=== PATIENT | male | born 1990 | race Two or more races ===

== ENCOUNTER 2023-11-16 11:05 | Inpatient (IN) | payer SELFPAY ==
[~2023-11-16] VITALS: Ht 177.8 cm; Wt 110.5 kg
[2023-11-16 11:41] LABS: BASOPHILS % (AUTO) 0.6 % (0.0-2.0); EOSINOPHILS % (AUTO) 2.3 % (1.0-6.0); HEMOGLOBIN 16.4 g/dL (13.5-17.5); LYMPHOCYTES # (AUTO) 1.8 K/uL (1.0-4.8); LYMPHOCYTES % (AUTO) 32.4 % (22.0-44.0); MEAN CORPUSCULAR HEMOGLOBIN 31.8 pg (26.0-34.0); MEAN CORPUSCULAR HGB CONC 36.3 G/dL (31.0-37.0); MEAN CORPUSCULAR VOLUME 88 fL (80-100); MONOCYTES # (AUTO) 0.4 K/uL (0.1-1.0); MONOCYTES % (AUTO) 7.8 % (2.0-9.0); NEUTROPHILS # (AUTO) 3.1 K/uL (1.8-7.7); NEUTROPHILS % (AUTO) 56.9 % (40.0-70.0); PLATELET COUNT (AUTO) 146 K/uL (150-450); RED BLOOD CELL COUNT(AUTO) 5.14 MIL/uL (4.50-5.90); RED CELL DISTRIBUTION WIDTH 13.6 % (11.5-14.5); WHITE BLOOD COUNT (AUTO) 5.4 K/uL (4.5-11.0)
[2023-11-16 12:05] LABS: ANION GAP 20 mmol/L (8-16); CALCIUM, TOTAL 7.4 mg/dL (8.8-10.5); CARBON DIOXIDE 17 mmol/L (22-29); CHLORIDE 94 mmol/L (98-107); GLUCOSE,RANDOM 379 mg/dL (70-110); POTASSIUM 3.8 mmol/L (3.5-5.1); SODIUM SERUM 131 mmol/L (136-145); UREA NITROGEN, BLOOD 13 mg/dL (7-18)
[2023-11-16 12:31] LABS: BILIRUBIN,TOTAL 1.1 mg/dL (0.1-1.0); CREATINE KINASE, TOTAL ONLY 99 U/L (39-308); PHOSPHORUS 2.8 mg/dL (2.5-4.9)
[2023-11-16 12:33] LABS: TROPONIN I-HIGH SENSITIVITY Less Than 4 ng/L (<76)
[2023-11-16 12:55] LABS: B-TYPE NATRIURETIC PEPTIDE 8 pg/mL (0-100)
[2023-11-16 13:04] LABS: ALANINE AMINOTRANSFERASE 86 U/L (12-78); ALBUMIN 3.6 g/dL (3.4-5.0); ALKALINE PHOSPHATASE 109 U/L (46-116); ASPARTATE AMINOTRANSFERASE 36 U/L (15-37); CREATININE 1.04 mg/dL (0.60-1.30); GLOMERULAR FILTR. RATE CALC > 60 mL/min (>60)
[2023-11-16] MEDS: MAGNESIUM SULFATE 1 GM in DEXTROSE 5%-WATER 50 ML IV ONE (13:45)
[2023-11-16] MEDS: SODIUM CHLORIDE 0.9% 1,000 ML IV ONE ×2 (13:45→16:52)
[2023-11-16 14:37] LABS: LACTIC ACID 0.7 mmol/L (0.4-2.0)
[2023-11-16] MEDS ORDERED: MAGNESIUM HYDROXIDE SUSPENSION 30 ML UDCUP PO PRN (15:30)
[2023-11-16] MEDS ORDERED: ZOLPIDEM TARTRATE 5 MG TABLET PO PRN (15:30)
[2023-11-16] MEDS ORDERED: MAGNESIUM SULFATE 4 GM/WATER 100 ML IV PRN (15:30)
[2023-11-16] MEDS ORDERED: DEXTROSE 50%-WATER 25 GM/50 ML SYRINGE IVP PRN (15:30)
[2023-11-16] MEDS ORDERED: MAGNESIUM SULFATE 2 GM/WATER 50 ML IV PRN (15:30)
[2023-11-16] MEDS ORDERED: BISACODYL 10 MG RECTAL RECTAL SUPPOSITORY PR PRN (15:30)
[2023-11-16] MEDS ORDERED: HYDROCODONE/ACETAMINOPHEN 5-325 MG TABLET PO PRN (15:30)
[2023-11-16] MEDS ORDERED: ACETAMINOPHEN 325 MG TABLET PO PRN (15:30)
[2023-11-16] MEDS ORDERED: ONDANSETRON HCL 4 MG/2 ML VIAL IVP PRN (15:30)
[2023-11-16] MEDS: HEPARIN SODIUM,PORCINE 5,000 UNITS/ML VIAL SQ SCH (16:53)
[2023-11-16] MEDS: MetFORMIN HCL 500 MG TABLET PO SCH (16:54)
[2023-11-16] MEDS: DOCUSATE SODIUM 100 MG CAPSULE PO SCH (20:28)
[2023-11-16] MEDS: INSULIN LISPRO 100 UNITS/ML SQ PRN (21:49)
[2023-11-16 22:03] VITALS: BP 123/74; PULSE 61; RESP 18; TEMP 98.4
[2023-11-16 23:06] LABS: GLUCOMETER DEV NAME(LOC) 5S.1B; GLUCOSE,POINT OF CARE 292 MG/DL (70-110)
[2023-11-16 23:48] VITALS: BP 121/74; PULSE 71; RESP 18; TEMP 98.2
[2023-11-17] VITALS (7 sets, daily range): BP systolic 118–131; BP diastolic 68–85; PULSE 62–94; RESP 16–20; TEMP 97.8–98.3
[2023-11-17 06:10] LABS: GLUCOMETER DEV NAME(LOC) 5S.1B; GLUCOSE,POINT OF CARE 230 MG/DL (70-110)
[2023-11-17] MEDS: MORPHINE SULFATE 2 MG/ML SYRINGE IVP PRN (08:43)
[2023-11-17] MEDS: HYDROCODONE/ACETAMINOPHEN 5-325 MG TABLET PO PRN (08:44)
[2023-11-17] MEDS: PANTOPRAZOLE SODIUM 40 MG DR TABLET PO SCH (08:44)
[2023-11-17] MEDS ORDERED: HYDROCODONE/ACETAMINOPHEN 5-325 MG TABLET PO PRN (11:30)
[2023-11-17] MEDS: MAGNESIUM OXIDE 400 MG TABLET PO PRN (12:30)
[2023-11-17] MEDS: MetFORMIN HCL 500 MG TABLET PO SCH (17:53)
[2023-11-17 19:06] LABS: GLUCOMETER DEV NAME(LOC) 5N.2C; GLUCOSE,POINT OF CARE 269 MG/DL (70-110)
[2023-11-17 19:06] LABS: GLUCOMETER DEV NAME(LOC) 5N.2C; GLUCOSE,POINT OF CARE 229 MG/DL (70-110)
[2023-11-17 23:36] LABS: GLUCOMETER DEV NAME(LOC) 5N.2C; GLUCOSE,POINT OF CARE 221 MG/DL (70-110)
[2023-11-18 03:39] VITALS: BP 110/72; PULSE 61; RESP 20; TEMP 97.9
[2023-11-18 07:26] VITALS: BP 125/73; PULSE 69; RESP 18; TEMP 98
[2023-11-18 08:25] LABS: APPEARANCE,URINE CLEAR (CLEAR); BILIRUBIN,URINE NEGATIVE (NEGATIVE); COLOR,URINE LIGHT YELLOW (YELLOW); GLUCOSE, URINE (UA) 70-100 mg/dL (NEGATIVE); KETONES,URINE NEGATIVE (NEGATIVE); LEUKOCYTE ESTERASE ,URINE NEGATIVE (NEGATIVE); NITRATE,URINE NEGATIVE (NEGATIVE); OCCULT BLOOD,URINE NEGATIVE (NEGATIVE); PH,URINE 5.5 (5.0-8.0); PROTEIN,URINE TRACE mg/dL (NEGATIVE); SPECIFIC GRAVITIY, URINE 1.018 (1.003-1.030); UROBILINOGEN,URINE <=1.0 mg/dL (<=1.0)
[2023-11-18 08:36] LABS: BACTERIA,URINE None Seen /HPF (None Seen); RBC,URINE None Seen /HPF (0-2); WBC,URINE None Seen /HPF (0-5); YEAST,URINE Moderate /HPF (None Seen)
[2023-11-18 08:40] LABS: ALCOHOL, URINE DRUG SCREEN NEGATIVE (NEGATIVE); AMPHET/METH SCREEN,URINE NEGATIVE (NEGATIVE); BARBITURATE SCREEN, URINE NEGATIVE (NEGATIVE); BENZODIAZEPINES SCREEN,URINE NEGATIVE (NEGATIVE); CANNABINOID SCREEN,URINE NEGATIVE (NEGATIVE); COCAINE SCREEN,URINE NEGATIVE (NEGATIVE); METHADONE SCREEN, URINE NEGATIVE (NEGATIVE); OPIATE SCREEN,URINE NEGATIVE (NEGATIVE); PHENCYCLIDINE SCREEN,URINE NEGATIVE (NEGATIVE)
[2023-11-18 11:33] LABS: PH,URINE DRUG SCREEN 5.5 (5.0-8.0)
[2023-11-18 12:00] VITALS: BP 116/68; PULSE 70; RESP 18; TEMP 98
[2023-11-18] MEDS ORDERED: METF-1211 PO (12:09)
[2023-11-18 14:59] VITALS: BP 120/72; PULSE 68; RESP 20; TEMP 98.1
[2023-11-19 05:30] LABS: GLUCOMETER DEV NAME(LOC) 5S.1B; GLUCOSE,POINT OF CARE 174 MG/DL (70-110)
[2023-11-19 05:30] LABS: GLUCOMETER DEV NAME(LOC) 5S.1B; GLUCOSE,POINT OF CARE 185 MG/DL (70-110)
== END 2023-11-18 18:50 | disposition home or self-care (01) | DRG 73 ==
LOC: EMS 11:05 → EDH 15:28 → 5S 21:28
PROVIDERS: ADMIT Internal Medicine; ATTEND Internal Medicine
DX: G90.8 Other disorders of autonomic nervous system (principal); E11.00 Type 2 diabetes mellitus with hyperosmolarity without nonketotic hyperglycemic-hyperosmolar coma (NKHHC); E83.42 Hypomagnesemia; Z79.4 Long term (current) use of insulin; Z79.84 Long term (current) use of oral hypoglycemic drugs
CPT/HCPCS: 70450; 71045; 72125; 80053; 80307; 81001; 82009; 82550; 82962; 83036; 83605; 83735; 83880; 84100; 84484; 85025; 93005; 93306; 99285; G0480; J1644; J2270; J3475; J7030; J7060; 36415-L1; 36415-TC